=== PATIENT | male | born 1945 | race Caucasian/White ===

== ENCOUNTER 2024-09-20 23:39 | Inpatient (IN) | payer OTHER ==
[~2024-09-20] VITALS: Ht 177.8 cm; Wt 113.0 kg
--- NOTE | 2024-09-20 23:53 | ED.PDOC ---
History of Present Illness HPI Comments 79 y/o obese M, with a history of AICD, is BIBA from home for c/o AICD discharge, today. Patient endorses on having lightheaded spells, that have been increasing in frequency, lately. He reports most recent onset after standing up and walking mid-way to use his bathroom resulting in his AICD to discharge. [facility] on history of his AICD discharging before in the past. He any additional discharge shocks since then along with having any chest pain, shortness of breath, lightheadedness, or further associated symptoms, currently. Time Seen by MD: 23:35 Reviewed Notes: Nurses Notes, Librarian Assistant Notes, Medications, Allergies Allergies: Uncoded Allergies: IBU (Allergy, Unknown, 09/20/24) Information Source: Patient, Emergency Med Personnel Mode of Arrival: EMS Severity: Moderate Timing: Hours Duration: Minutes Prehospital treatment: 12 Lead EKG, Catering Driver Past Medical History PAST MEDICAL HISTORY: AFIB Surgical History (Other): AICD Family History Family History: Unknown Social History Smoker: Non-Smoker Alcohol: Denies ETOH Use Drugs: Denies Drug Use Lives In: Home All Other Systems: Reviewed and Negative (Comprehensive systems review obtained and negative except for what is stated in the HPI.) Physical Exam General Appearance: No Apparent Distress, Obese, Other (tired appearing ) HEENT: Normal ENT Inspection, Pharynx Normal, TMs Normal Neck: Full Range of Motion, Non-Tender, Normal, Normal Inspection Respiratory: Chest Non-Tender, Lungs Clear, No Accessory Muscle Use, No Respiratory Distress, Normal Breath Sounds Cardiovascular: No Edema, No JVD, No Murmur, No Gallop, Normal Peripheral Pulses, Regular Rate/Rhythm Breast Exam: Deferred Gastrointestinal: No Organomegaly, Non Tender, No Pulsatile Mass, Normal Bowel Sounds, Soft Genitalia: Deferred Pelvic: Deferred Rectal: Deferred Extremities: No calf tenderness, Normal capillary refill, Normal inspection, Normal range of motion, Non-tender, No pedal edema Musculoskeletal : Apperance: Normal Neurologic: Alert, technical support internship II-XII nml as Tested, No Motor Deficits, Normal Affect, Normal Mood, No Sensory Deficits Cerebellar Function: Normal Reflexes: Normal Skin: Dry, Normal Color, Warm Lymphatic: No Adenopathy Was a procedure done? Was a procedure done?: No EKG EKG : Pulse Rate (adult): 76 Venus: Normal Cardiac Rhythm: NSR Block: RBBB Hypertrophy: None ST: Normal Differential Dx Considerations may include: AICD discharge, AICD malfunction, arrhythmia, electrolyte imbalance, dehydration, among others X-Ray, Labs, Meds, VS Vital Signs Date Time Temp Pulse Resp B/P (MAP) Pulse Ox O2 Delivery O2 Flow Rate FiO2 09/21/24 00:32 70 09/20/24 23:53 76 09/20/24 23:42 98.8 78 20 145/78 (100) 95 98.8 09/20/24 23:39 76 Lab Test 09/21/24 00:54 09/20/24 23:56 Range/Units Troponin I High Sensitivity Pending 20 </=54 ng/L White Blood Count 7.9 4.4-10.8 10^3/uL Red Blood Count 4.11 L 4.5-5.90 10^6/uL Hemoglobin 10.6 L 13.5-17.5 g/dL Hematocrit 32.5 L 41.0-53.0 % Mean Corpuscular Volume 79.0 L 80.0-100.0 fL Mean Corpuscular Hemoglobin 25.8 L 28.0-32.0 pg Mean Corpuscular Hemoglobin Concent 32.7 32.0-36.0 g/dL Red Cell Distribution Width 16.1 H 11.8-14.3 % Platelet Count 391 140-450 10^3/uL Mean Platelet Volume 7.3 6.9-10.8 fL Neutrophils (%) (Auto) 75.7 37.0-80.0 % Lymphocytes (%) (Auto) 14.2 10.0-50.0 % Monocytes (%) (Auto) 9.6 0.0-12.0 % Eosinophils (%) (Auto) 0.2 0.0-7.0 % Basophils (%) (Auto) 0.3 0.0-2.0 % Neutrophils # (Auto) 6.0 1.6-8.6 10 ^3/uL Lymphocytes # (Auto) 1.1 0.4-5.4 10 ^3/uL Monocytes # (Auto) 0.8 0-1.3 10 ^3/uL Eosinophils # (Auto) 0 0-0.8 10 ^3/uL Basophils # (Auto) 0 0-0.2 10 ^3/uL Nucleated Red Blood Cells 0.0 % Sodium Level 135 L 136-145 mmol/L Potassium Level 3.2 L 3.5-5.1 mmol/L Chloride Level 100 98-107 mmol/L Carbon Dioxide Level 26 20-31 mmol/L Anion Gap 9 5-15 Blood Urea Nitrogen 15 9-23 mg/dL Creatinine 0.90 0.700-1.30 mg/dL Glomerular Filtration Rate Calc 88 >90 mL/min BUN/Creatinine Ratio 16.7 10.0-20.0 Serum Glucose 128 H 74-106 mg/dL Calcium Level 9.3 8.7-10.4 mg/dL B-Type Natriuretic Peptide 140.16 0-100 pg/mL Time of 1ST Reevaluation: 00:05 Reevaluation 1ST: Improved Patient Education/Counseling: Diagnosis, Treatment Family Education/Counseling: No Family Present Additional Information Previous visits: N/A The following tests were ordered, and results were reviewed by me: EKG, UA, CXR, BNP, CBC BMP, troponin Additional Information was gathered from interviewing the following independent historians: EMS I reviewed and agreed with the following test results read by other providers: CXR I discussed treatment and results with medical personnel and: Patient Departure 1 Departure Time of Disposition: 01:17 ([place] [facility]Patient presented with chest pain shortness of breath and near-syncope as well as an EAC discharge. Patient is still symptomatic. We will admit patient here for cardiology consulted and further workup.) Impression: Primary Impression: Acute chest pain Additional Impressions: Near syncope AICD discharge Generalized weakness Disposition: ADMITTED INPATIENT Admit to: Med Surg Condition: Serious Critical Care Note Critical Care Time?: Yes Critical care comment: Acute chest pain Authorized and Performed by: Kody Harvey MD Total critical care time: Approximately 41 minutes Due to a high probability of clinically significant, life threatening deterioration, the patient required my highest level of preparedness to intervene emergently and I personally spent this critical care time directly and personally managing the patient. This critical care time included obtaining a history; examining the patient; pulse oximetry; ordering and review of studies; arranging urgent treatment with development of a management plan; evaluation of patient's response to treatment; frequent reassessment; and, discussions with other providers. This critical care time was performed to assess and manage the high probability of imminent, life-threatening deterioration that could result in multi-organ failure. It was exclusive of separately billable procedures and treating other patients and teaching time. Please see my other sections and the rest of the note for further information on patient assessment and treatment. Stability Stability form required: No Heart Score Heart Score: Heart Score Response (Comments) Value History Highly Suspicious 2 EKG Normal 0 Age >65 2 Risk Factors >3 or Hx ASHD 2 Troponin 1-2 x's Normal limit 1 Total 7 I personally scribed for KODY HARVEY MD ([email or web address]) on 09/20/24 at 23:53. Electronically submitted by Troy Norris ([email or web address]). KODY HARVEY MD Sep 20, 2024 23:53
[2024-09-21 00:19] LABS: Basophils # (auto) 0 10 ^3/uL (0-0.2); Basophils % (auto) 0.3 % (0.0-2.0); Eosinophils # (auto) 0 10 ^3/uL (0-0.8); Hemoglobin 10.6 g/dL (13.5-17.5); Monocytes # (auto) 0.8 10 ^3/uL (0-1.3)
[2024-09-21 00:20] LABS: Chloride 100 mmol/L (98-107); Eosinophils % (auto) 0.2 % (0.0-7.0); Hematocrit 32.5 % (41.0-53.0); Lymphocytes # (auto) 1.1 10 ^3/uL (0.4-5.4); Lymphocytes % (auto) 14.2 % (10.0-50.0); Mean Corpuscular Hemoglobin 25.8 pg (28.0-32.0); Mean Corpuscular Hgb Conc. 32.7 g/dL (32.0-36.0); Monocytes % (auto) 9.6 % (0.0-12.0); Neutrophils % (auto) 75.7 % (37.0-80.0); Platelet Count (auto) 391 10^3/uL (140-450); Red Blood Cells 4.11 10^6/uL (4.5-5.90); Red Cell Distribution Width 16.1 % (11.8-14.3); White Blood Cell 7.9 10^3/uL (4.4-10.8)
[2024-09-21 00:21] LABS: Anion Gap 9 (5-15); Carbon Dioxide 26 mmol/L (20-31)
[2024-09-21 00:22] LABS: Calcium 9.3 mg/dL (8.7-10.4)
[2024-09-21 00:26] LABS: BUN/Creatinine Ratio 16.7 (10.0-20.0); Blood Urea Nitrogen 15 mg/dL (9-23)
[2024-09-21 00:32] LABS: Glucose 128 mg/dL (74-106); Potassium 3.2 mmol/L (3.5-5.1); Sodium 135 mmol/L (136-145)
--- NOTE | 2024-09-21 00:33 | DVH ---
CHEST RADIOGRAPH Indication: palpitations Technique: Single frontal view of the chest was obtained COMPARISON: None FINDINGS: Lines and Tubes: Right IJ port-a-cath noted with its tip projecting over approximately SVC. Dual-lead AICD/pacemaker noted overlying left chest wall. Lungs: Clear Pleura: No effusion. No pneumothorax. Cardiomediastinal contours: Unremarkable IMPRESSION: No acute disease.
[2024-09-21 01:03] VITALS: PULSE 70; RESP 13; O2SAT 97
--- NOTE | 2024-09-21 01:51 | DVHHPRES ---
History of Present Illness Resident Creating Document: KD MOCK History of Present Illness Ernesto Jiménez is a 79-year-old male patient who presents to the ED with chief complaint of ICD discharge. Episode started after he had gone to the bathroom to urinate, felt lightheaded when he stood up and immediately had discharge from the ICD device. Patient reports feeling lightheadedness in the past days after his chemotherapy session (last one was done on Friday). 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 to 100 mg b.i.d. and his metoprolol was reduced from 100 mg b.i.d. to 25 mg p.o. b.i.d..). Patient does complain of previous episode of discharge in 2011 where he was diagnosed with coronary artery disease and completed PCI with placement of 1 stent approximately 10 years ago. Patient denies head trauma, palpitation, syncope, chest pain, dyspnea, nausea, vomiting, diarrhea, bleeding, sick contacts, recent travel or motor and sensitive deficits. Past medical history: Hypertension, dyslipidemia, diabetes, ARVC status post ICD placed in 2011, coronary artery disease status post PCI with 1 VITA., paroxysmal atrial fibrillation (chads Vasc 5/has bled 3) currently on Pradaxa and amiodarone, colon cancer diagnosed in 2023 status post resection in April/2024 with recent diagnosis of recurrence (he has peritoneal metastasis) currently he has completed two sessions of chemotherapy (still optimizing chemot herapy). Surgical history: 2011 ICD placement, 2011 PCI with 1 VITA, colon resection on 04/2024 Family history: Father had AAA Social history: Lives in [place] with (she has been next of kin). Denies current tobacco, alcohol and other drug abuse. He is consuming CBD gummies for abdominal pain due to colon cancer metastases Allergies: Statins (gives him myalgias) Home medication: Hydrochlorothiazide, amiodarone 100 mg p.o. b.i.d., metoprolol 25 mg p.o. b.i.d., losartan, glipizide, Pradaxa, Evolucumab. Patient seen and examined at bedside. Currently has no new complaints. Presented hypokalemia on preliminary workup. EKG shows prolonged QTC (above 600 milliseconds). We will not initiate beta-blockers amiodarone due to prolonged QT. We will correct potassium and we will interrogate cardiac device. Past Medical History Per HPI Past Surgical History Per HPI Family History Per HPI Past Social History Per HPI Review of Systems Review of Systems Per HPI Allergies: Uncoded Allergies: IBU (Allergy, Unknown, 09/20/24) Exam Vital Signs Vital Signs Date Time Temp Pulse Resp B/P (MAP) Pulse Ox O2 Delivery O2 Flow Rate FiO2 09/21/24 00:32 70 09/20/24 23:42 98.8 20 145/78 (100) 95 98.8 Exam Patient lying in bed, in no acute distress General: Lucid, afebrile, mucosae are moist Cardiovascular: Normal S1 and S2. No murmurs, gallops or rubs Respiratory: Normal ventilation mechanics. Clear lung sounds on auscultation Abdomen: Soft, nontender, no organomegaly, normal bowel sounds MSK/skin: Mobilizes 4 limbs. Skin is dry and warm Neurological: Oriented in 3 spheres. No motor no sensitive deficits. Pupils are isocoric and reactive Labs/Xrays Labs Test 09/21/24 00:54 09/20/24 23:56 Range/Units Troponin I High Sensitivity 23 </=54 ng/L White Blood Count 7.9 4.4-10.8 10^3/uL Red Blood Count 4.11 L 4.5-5.90 10^6/uL Hemoglobin 10.6 L 13.5-17.5 g/dL Hematocrit 32.5 L 41.0-53.0 % Mean Corpuscular Volume 79.0 L 80.0-100.0 fL Mean Corpuscular Hemoglobin 25.8 L 28.0-32.0 pg Mean Corpuscular Hemoglobin Concent 32.7 32.0-36.0 g/dL Red Cell Distribution Width 16.1 H 11.8-14.3 % Platelet Count 391 140-450 10^3/uL Mean Platelet Volume 7.3 6.9-10.8 fL Neutrophils (%) (Auto) 75.7 37.0-80.0 % Lymphocytes (%) (Auto) 14.2 10.0-50.0 % Monocytes (%) (Auto) 9.6 0.0-12.0 % Eosinophils (%) (Auto) 0.2 0.0-7.0 % Basophils (%) (Auto) 0.3 0.0-2.0 % Neutrophils # (Auto) 6.0 1.6-8.6 10 ^3/uL Lymphocytes # (Auto) 1.1 0.4-5.4 10 ^3/uL Monocytes # (Auto) 0.8 0-1.3 10 ^3/uL Eosinophils # (Auto) 0 0-0.8 10 ^3/uL Basophils # (Auto) 0 0-0.2 10 ^3/uL Nucleated Red Blood Cells 0.0 % Sodium Level 135 L 136-145 mmol/L Potassium Level 3.2 L 3.5-5.1 mmol/L Chloride Level 100 98-107 mmol/L Carbon Dioxide Level 26 20-31 mmol/L Anion Gap 9 5-15 Blood Urea Nitrogen 15 9-23 mg/dL Creatinine 0.90 0.700-1.30 mg/dL Glomerular Filtration Rate Calc 88 >90 mL/min BUN/Creatinine Ratio 16.7 10.0-20.0 Serum Glucose 128 H 74-106 mg/dL Calcium Level 9.3 8.7-10.4 mg/dL B-Type Natriuretic Peptide 140.16 0-100 pg/mL Assessment/Plan Assessment/Plan Assessment: Probable ventricular arrhythmia (V-tach versus torsades) Prolonged QT Hypokalemia ARVC status post ICD placement Coronary artery disease status post 1 VITA Paroxysmal atrial fibrillation (chads Vasc 5/Has bled 3) Colon cancer with recurrence and peritoneal metastases status post resection and chemotherapy Hypertension Dyslipidemia Diabetes Plan: Replenish potassium. Ordered magnesium to evaluate requirement for replenishment. Replenish until potassium above four and magnesium above two. Order cardiac device interrogation Avoid medication that prolonged QT (did not initiate metoprolol nor amiodarone at this point). Switch Pradaxa to therapeutic enoxaparin. Continue rest of home medication. Ordered cardiology evaluation to rule out ischemia We do not have Evolucomab the hospital, we will place it as patient's home medication (patient has myalgias with atorvastatin) Patient on aspirin (he was not on aspirin at home) Goals of care discussed with patient for over 24 minutes: DNR. Have discussed with patient that currently he is ICD is working and defibrillator it is whenever he has a arrhythmia, he may plan on deactivating ICD. He does agree on completing coronary angiography. Discussed plan with Dr. Padron, patient, family and nurses: We will replenish electrolytes, avoid medication that prolongs QT, consulted Cardiology to rule out ischemia. Ordered cardiac device interrogation. Patient has poor prognosis. Patient is unstable for transferred to [place]. Plan discussed with: Patient, Spouse, Other (Nurses) My Orders Orders - KD MOCK RESIDENT Procedure Category Date Status Time Admit ADMIT 09/21/24 Transmitted 01:47 Code Status CODE 09/21/24 Transmitted 01:47 Vital Signs [facility] 09/21/24 In Process 01:47 Review Orders With [facility] 09/21/24 In Process Adm. 01:47 Consistent DIET 09/21/24 Transmitted Carb(Ccho)Diabetes Breakfast Docusate Sodium PHA 09/21/24 Logged Capsule (Colace 02:00 Acetaminophen Tablet PHA 09/21/24 Logged (Tylenol Tablet) 02:00 Notify Of Changes [facility] 09/21/24 In Process From Base 01:47 Advance Directive [facility] 09/21/24 In Process 01:47 Echo 2d Mode Cardiac US 09/21/24 Logged DOP 01:47 Patient Condition ORDERS 09/21/24 Transmitted 01:47 Allergies [facility] 09/21/24 In Process 01:[address] [facility] 09/21/24 Logged (Zofran) 02:00 Morphine Sulfate PHA 09/21/24 Logged Injection 02:00 Enoxaparin Sodium PHA 09/21/24 Logged (Lovenox) 10:00 Nitroglycerin PHA 09/21/24 Logged Sublingual (Ntrostat 02:00 Morphine Sulfate PHA 09/21/24 Transmitted Injection 02:00 Oxygen By Nasal RT 09/21/24 Transmitted Cannula 01:47 Stat Ekg For Chest [facility] 09/21/24 In Process Pain 01:47 Notify Of Changes [facility] 09/21/24 In Process From Base 01:47 Edge Inker For [facility] 09/21/24 In Process 24 Hours 01:47 Emergency Dysrhythmia [facility] 09/21/24 In Process Protocol 01:47 Rhythm Strips Once [facility] 09/21/24 In Process Every Shift 01:47 Vitamin D, 25-Hydroxy LAB 09/21/24 Logged 01:47 Vitamin B12 LAB 09/21/24 Logged 01:47 Urinalysis LAB 09/21/24 Logged 01:47 Thyroid Stimulating LAB 09/21/24 Logged Hormone 01:47 Phosphorus LAB 09/21/24 Logged 01:47 Magnesium LAB 09/21/24 Transmitted 01:47 Hemoglobin A1c LAB 09/21/24 Transmitted 01:47 Drug Screen LAB 09/21/24 Transmitted 01:47 Lactic Acid W/ Reflex LAB 09/21/24 Transmitted Order 01:47 PTPTT LAB 09/21/24 Logged 01:47 Complete Blood Count LAB 09/21/24 Transmitted 04:00 Basic Metabolic Panel LAB 09/21/24 Transmitted 04:00 Potassium Chl Beto PHA 09/21/24 Verified KCL 02:00 Date of Service: Sep 21, 2024 Billing Provider: [facility] [place] RES[facility] Sep 21, 2024 01:51
[2024-09-21] MEDS ORDERED: ACETAMINOPHEN 325 MG TAB PO PRN (02:00)
[2024-09-21] MEDS ORDERED: NITROGLYCERIN 0.4 MG SL TAB SL PRN (02:00)
[2024-09-21] MEDS ORDERED: ONDANSETRON HCL 4 MG/2 ML VIAL IV PRN (02:00)
[2024-09-21] MEDS ORDERED: MORPHINE SULFATE INJ 2 MG/ml SYRG IV PRN (02:00)
[2024-09-21] MEDS ORDERED: DOCUSATE SOD 100 MG CAP PO PRN (02:00)
[2024-09-21 02:23] LABS: INR 1.12 (0.9-1.15); Partial Thromboplastin Time 34.1 SEC (24.5-34.5); Prothrombin Time 11.7 sec (9.3-11.8)
[2024-09-21] MEDS: POTASSIUM CHL 20MEQ/50ML 50 ML IV SCH (03:15)
[2024-09-21] MEDS ORDERED: DEXTROSE (50%) 50ML SYRG IV PRN (04:15)
[2024-09-21] MEDS ORDERED: PATIENTS OWN MEDICATION PO SCH (05:00)
[2024-09-21 05:28] LABS: Basophils # (auto) 0 10 ^3/uL (0-0.2); Basophils % (auto) 0.2 % (0.0-2.0); Eosinophils # (auto) 0 10 ^3/uL (0-0.8); Eosinophils % (auto) 0.4 % (0.0-7.0); Hematocrit 30.7 % (41.0-53.0); Hemoglobin 10.2 g/dL (13.5-17.5); Mean Corpuscular Hgb Conc. 33.2 g/dL (32.0-36.0); Monocytes # (auto) 0.8 10 ^3/uL (0-1.3); Neutrophils # (auto) 5.2 10 ^3/uL (1.6-8.6); White Blood Cell 7.3 10^3/uL (4.4-10.8)
[2024-09-21 05:31] LABS: Lymphocytes # (auto) 1.4 10 ^3/uL (0.4-5.4); Lymphocytes % (auto) 18.5 % (10.0-50.0); Mean Corpuscular Hemoglobin 26.1 pg (28.0-32.0); Mean Corpuscular Volume 78.5 fL (80.0-100.0); Monocytes % (auto) 10.5 % (0.0-12.0); Neutrophils % (auto) 70.4 % (37.0-80.0); Platelet Count (auto) 368 10^3/uL (140-450); Red Blood Cells 3.91 10^6/uL (4.5-5.90); Red Cell Distribution Width 16.1 % (11.8-14.3)
[2024-09-21] MEDS: PANTOPRAZOLE 40 MG/10 ML VIAL INJ IV ONE (05:37)
[2024-09-21 05:42] LABS: Anion Gap 9 (5-15); Carbon Dioxide 26 mmol/L (20-31); Chloride 100 mmol/L (98-107)
[2024-09-21 05:43] LABS: Calcium 9.4 mg/dL (8.7-10.4)
[2024-09-21 05:44] LABS: Sodium 135 mmol/L (136-145)
[2024-09-21 05:49] LABS: BUN/Creatinine Ratio 16.9 (10.0-20.0); Blood Urea Nitrogen 14 mg/dL (9-23); Magnesium 2.1 mg/dL (1.6-2.6)
[2024-09-21 05:54] LABS: Glucose 110 mg/dL (74-106)
[2024-09-21] MEDS: ACCU-CHEK COMFORT CURVE STRIP VI SCH (07:00)
[2024-09-21] MEDS: InsuLIN REG 1unit/0.01ml Soln (100units/ml) SC SCH (07:00)
[2024-09-21 07:54] LABS: Urine Bacteria None Seen /hpf (None Seen); Urine Blood Negative /uL (Negative); Urine Clarity Clear (Clear); Urine Color Yellow (Yellow); Urine Mucus FEW (None Seen); Urine Protein, UAD TRACE (Negative); Urine Specific Gravity 1.027 (1.001-1.035); Urine Squamous Epithelial Cell FEW /hpf (<5); Urine Urobilinogen 2 mg/dL (Negative); Urine WBC 1 /HPF (0-3)
[2024-09-21 08:07] LABS: Amphetamine Screen, Urine Neg (NEGATIVE); Barbiturate Scree,Urine Neg (NEGATIVE); Benzodiazephine Screen, Urine Neg (NEGATIVE); Cannabinoid Screen, Urine Pos (NEGATIVE); Cocaine Screen, Urine Neg (NEGATIVE); Opiate Scree,Urine Pos (NEGATIVE); Phencyclidine Screen, Urine Neg (NEGATIVE)
[2024-09-21 08:30] VITALS: PULSE 70; RESP 13; O2SAT 97
[2024-09-21] MEDS: PANTOPRAZOLE 40 MG/10 ML VIAL INJ IV SCH (09:36)
[2024-09-21] MEDS: ASPirin 81 mg TAB PO SCH (09:37)
[2024-09-21] MEDS: ENOXAPARIN SOD 100 MG/1 ML SYRINGE SC SCH (09:37)
[2024-09-21] MEDS: LOSARTAN POTASSIUM 25 MG TAB PO SCH (09:37)
[2024-09-21] MEDS ORDERED: ENOXAPARIN SOD 40 MG/0.4 ML SYRINGE SC SCH (10:00)
[2024-09-21] MEDS: MORPHINE SULFATE INJ 2 MG/ml SYRG IV PRN (11:52)
--- NOTE | 2024-09-21 11:53 | DVHINCON2 ---
BEATRICE ROSS [facility] 09/21/24 1153: Date Seen: Sep 21, 2024 Referring Physician MD Jenny Reason for Consultation Probable cardiogenic syncope, evaluate [facility] History of Present Illness This is a pleasant 79-year-old man who presented to the emergency room via EMS with a chief complaint of ICD discharge. Per patient, he was sitting on the toilet urinating when he stood up and felt lightheadedness followed by ICD device discharge x1. At time of assessment, the patient denied any cardiac symptoms including chest discomfort, SOB, palpitations, dizziness, visual disturbance, or diaphoresis. States he had a similar episode of ICD device discharge back in 2011 undergoing an ischemic stress test with subsequent successful coronary angiogram with cardiac catheterization including 1DES to an unknown vessel. Reports intermittent dizziness for the past few weeks endorsing his symptoms to be possibly secondary to recent chemotherapy treatment for colorectal cancer stage III with latest administration on 08/20/2024 and upcoming session on 09/24/2024. A 12 lead electrocardiogram revealed a sinus rhythm with an associated first-degree atrioventricular block, ARVC seen on anteroseptal leads, and a prolonged QTc as long as 684 ms. Serial troponin levels are negative. Follows up with primary traffic attendant at [facility] with recent changes on amiodarone from 200 mg to 100 mg bid. 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 Past Medical History Past medical history reviewed. No other significant than mentioned above. Past Surgical History Dual-chamber ICD, 2011 PTCA including 1DES, 2011 Inoperable colorectal CA, 04/2024 Family History Family history reviewed. Significant for father with AAA. Social History Denies the use of illicit drugs, alcohol, or tobacco use. Admits to [facility] gummies for cancer symptoms. Allergies: Coded Allergies: Statins (Verified Allergy, Unknown, swelling, 09/22/24) Uncoded Allergies: IBU (Allergy, Unknown, 09/20/24) Home Meds Reported Medications Hydrochlorothiazide (Hydrochlorothiazide) 25 Mg Tab, 1 TAB PO DAILY, #30 TAB 5 Refills 09/22/24 Losartan Potassium (Losartan Potassium) 25 Mg Tab, 1 TAB PO DAILY, #90 TAB 1 Refill 09/22/24 Glipizide (Glipizide) 5 Mg Tab, 1 TAB PO BID, #60 TAB 3 Refills 09/22/24 Dabigatran Etexilate Mesylate (Pradaxa) 150 Mg Cap, 1 CAP PO BID, #180 CAP 1 Refill 09/22/24 Amiodarone Hcl (Amiodarone Hcl) 200 Mg Tab, 1 TAB PO DAILY, #90 TAB 1 Refill 09/22/24 Metoprolol Succinate (Metoprolol Succinate Er) 25 Mg Tab, 1 TAB PO DAILY, #30 TAB 5 Refills 09/22/24 Docusate Sodium (Colace) 100 Mg Cap, 1 CAP PO BID, #30 CAP 09/22/24 Aspirin (Aspir-81) 81 Mg Tab, 1 TAB PO DAILY, #30 TAB 5 Refills 09/22/24 Home Meds Home medications reviewed. Current Medications Current Medications Medications (Trade) Dose Ordered Sig/Dina Route PRN Reason Start Time Stop Time Status Last Admin Docusate Sodium (Colace Capsule) 100 mg BIDPRN PRN PO FOR CONSTIPATION 09/21/24 02:00 Acetaminophen (Tylenol Tablet) 650 mg Q6HP PRN PO PAIN SCALE 1-3 OR TEMP>100.4 09/21/24 02:00 Ondansetron HCl (Zofran) 4 mg Q4HP PRN IV NAUSEA / VOMITING 09/21/24 02:00 09/21/24 04:54 DC Morphine Sulfate 2 mg Q4HPRN PRN IV SEVERE PAIN (7-10 PAIN SCALE) 09/21/24 02:00 Enoxaparin Sodium (Lovenox) 40 mg DAILY SC 09/21/24 10:00 09/21/24 04:54 DC Nitroglycerin (Ntrostat Sublingual) 0.4 mg Q5MINP PRN SL FOR CHEST PAIN 09/21/24 02:00 Morphine Sulfate 2 mg Q30M PRN IV FOR CHEST PAIN 09/21/24 02:00 Potassium Chloride 50 ml @ 25 mls/hr Q2H IV 09/21/24 02:00 09/21/24 09:59 DC 09/21/24 09:36 Enoxaparin Sodium (Lovenox) 100 mg Q12HR SC 09/21/24 10:00 09/21/24 09:37 Pantoprazole Sodium (Protonix) 40 mg DAILY IV 09/21/24 10:00 09/21/24 09:36 Losartan Potassium (Cozaar Tablet) 25 mg DAILY PO 09/21/24 10:00 09/21/24 09:37 Diagnostic Test (Pha) (Accu-Chek Comfort Curve T) 1 strip ACHS 09/21/24 07:00 09/21/24 07:00 Insulin Human Regular (InsuLIN R) ACHS SC 09/21/24 07:00 Dextrose 50 ml UD PRN IV Blood Sugar LESS THAN 60 09/21/24 04:15 Aspirin 81 mg DAILY PO 09/21/24 10:00 09/21/24 09:37 Patient Own Medication 1 QWEEKLY PO 09/21/24 05:00 Hold Review of Systems Constitutional: No symptom reported Ears, Nose, & Throat: No symptom reported Eyes: No symptom reported Neurological: No symptoms reported Pulmonary/Respiratory: No symptom reported Cardiovascular: No symptom reported Gastrointestinal: No symptom reported Genitourinary: No symptom reported Musculoskeletal: No symptom reported Skin: No symptom reported Psychiatric: No symptom reported Endocrine: No symptom reported Hemotologic/Lymphatic: No symptom reported Vital Signs Vital Signs Date Time Temp Pulse Resp B/P (MAP) Pulse Ox O2 Delivery O2 Flow Rate FiO2 09/21/24 09:37 150/61 09/21/24 08:26 70 17 93 09/21/24 05:19 98.8 98.8 09/21/24 01:03 Room Air* 0 21 Physical Exam General Appearance: Cooperative. Well developed. Obese. In no acute distress Head Exam: Normal inspection Neck Exam: Normal inspection. Non-tender. Normal alignment Pulmonary/Respiratory: Chest non-tender. Clear bilateral breath sounds Cardiovascular/Chest: Regular rate and rhythm. S1, S2. SR with ARVC, 1st degree AV block, and prolonged QTc. No murmurs. No JVD. Peripheral Pulses: 2+ Radial (R). 2+ Radial (L). 2+ Pedal (R). 2+ Pedal (L) Abdominal Exam: Normal bowel sounds. Soft. Nontender. No hepatospenomegaly. No masses Ankle Exam: Negative ankle edema Lower extremities: Negative lower extremity edema Neuro/Mental Status: A&O x4. Coherent Thoughts/Psych: Normal thought pattern. Appropriate mood and affect. Good judgement and insight Appearance: In no acute distress Skin Exam: Normal inspection. Normal color. Warm. Dry Labs/Diagnostic Data Labs Test 09/21/24 08:45 09/21/24 05:10 09/21/24 02:40 09/21/24 01:47 Range/Units Potassium Level 3.4 L 3.5-5.1 mmol/L White Blood Count 7.3 4.4-10.8 10^3/uL Red Blood Count 3.91 L 4.5-5.90 10^6/uL Hemoglobin 10.2 L 13.5-17.5 g/dL Hematocrit 30.7 L 41.0-53.0 % Mean Corpuscular Volume 78.5 L 80.0-100.0 fL Mean Corpuscular Hemoglobin 26.1 L 28.0-32.0 pg Mean Corpuscular Hemoglobin Concent 33.2 32.0-36.0 g/dL Red Cell Distribution Width 16.1 H 11.8-14.3 % Platelet Count 368 140-450 10^3/uL Mean Platelet Volume 7.2 6.9-10.8 fL Neutrophils (%) (Auto) 70.4 37.0-80.0 % Lymphocytes (%) (Auto) 18.5 10.0-50.0 % Monocytes (%) (Auto) 10.5 0.0-12.0 % Eosinophils (%) (Auto) 0.4 0.0-7.0 % Basophils (%) (Auto) 0.2 0.0-2.0 % Neutrophils # (Auto) 5.2 1.6-8.6 10 ^3/uL Lymphocytes # (Auto) 1.4 0.4-5.4 10 ^3/uL Monocytes # (Auto) 0.8 0-1.3 10 ^3/uL Eosinophils # (Auto) 0 0-0.8 10 ^3/uL Basophils # (Auto) 0 0-0.2 10 ^3/uL Nucleated Red Blood Cells 0.0 % Sodium Level 135 L 136-145 mmol/L Chloride Level 100 98-107 mmol/L Carbon Dioxide Level 26 20-31 mmol/L Anion Gap 9 5-15 Blood Urea Nitrogen 14 9-23 mg/dL Creatinine 0.83 0.700-1.30 mg/dL Glomerular Filtration Rate Calc 90 >90 mL/min BUN/Creatinine Ratio 16.9 10.0-20.0 Serum Glucose 110 H 74-106 mg/dL Hemoglobin A1c 5.4 <5.7 % A1C Lactic Acid Level 1.0 0.4-2.0 mmol/L Calcium Level 9.4 8.7-10.4 mg/dL Phosphorus Level 3.0 2.4-5.1 mg/dL Magnesium Level 2.1 1.6-2.6 mg/dL Vitamin B12 Level 124 L 211-911 pg/mL Vitamin D 25-Hydroxy 64.1 30.0-100 ng/mL Thyroid Stimulating Hormone (TSH) 1.42 0.55-4.78 uIU/mL Troponin I High Sensitivity 24 </=54 ng/L Urine Color Yellow Yellow Urine Clarity Clear Clear Urine pH 6.0 5.0-9.0 Urine Specific Onward 1.027 1.001-1.035 Urine Protein Trace H Negative Urine Ketones 1+ H Negative Urine Blood Negative Negative /uL Urine Nitrite Negative Negative Urine Bilirubin Negative Negative Urine Urobilinogen 2 H Negative mg/dL Urine Leukocyte Esterase Negative Negative /uL Urine RBC <1 0 - 3 /hpf Urine Microscopic WBC 1 0-3 /HPF Urine Squamous Epithelial Cells Few <5 /hpf Urine Bacteria None seen None Seen /hpf Urine Mucus Few None Seen Urine Glucose Normal Normal mg/dL Urine Opiates Screen Pos NEGATIVE Urine Fentanyl Screen Neg NEGATIVE Urine Barbiturates Screen Neg NEGATIVE Urine Phencyclidine Screen Neg NEGATIVE Urine Amphetamines Screen Neg NEGATIVE Urine Benzodiazepines Screen Neg NEGATIVE Urine Cocaine Screen Neg NEGATIVE Urine Cannabinoids Screen Pos NEGATIVE Test 09/20/24 23:56 Range/Units Prothrombin Time 11.7 9.3-11.8 sec Prothrombin Time INR 1.12 0.9-1.15 Activated Partial Thromboplast Time 34.1 24.5-34.5 SEC B-Type Natriuretic Peptide 140.16 0-100 pg/mL Assessment Dual-chamber AICD discharge x 1, Biotronik (01/2018) Prolonged QTc >650 ms, ?Torsades de pointes Coronary artery disease status post PCI with 1DES (off antiplatelets) 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 Santana) We will continue further cardiac evaluation with a transthoracic echocardiogram and an ICD interrogation to further discerned cardiac arrhythmia at time of ICD discharge. Suspected for torsades de pointes versus sustained ventricular tachycardia. Given advanced inoperable colorectal cancer stage III with peritoneal metastases, may not be prudent to perform any invasive cardiac procedures at this time as the risks may outweigh the benefits. This was discussed with the patient and at bedside who agreed with plan. Per patient, he would like to be a DNR status and is considering ICD deactivation. As the patient is cardiac stable, it would be feasible to transfer to [facility] for primary traffic attendant and oncologist to come in agreement for POC. Given the patient's choices and very poor prognosis, he may be a candidate for hospice care. In the meantime, avoid Class Ia and III antiarrhythmics, continue therapeutic Lovenox, and single-antiplatelet therapy ([id number] Score 5 points, HAS-BLED Score 3 points). Initiate beta-rosangela and up-titrate as tolerated. Replete electrolytes as necessary, K>4 and Mg >2. Further orders per clinical course. Thank you for allowing us to participate in this patient's care. Please call if you have any questions or concerns. Critical care time: 60 min. This medical document was created using an electronic medical record system with voice recognition software and co [employer] dictation system. Although this document has been carefully reviewed, there might still be some phonetic and typographical errors. Occasional wrong-word or ``sound-alike substitutions may have occurred due to the inherent limitations of voice recognition software. These areas are purely typographical due to imperfections of the software programs and do not reflect a ny compromise in the patient's medical care. Please read the chart carefully and recognize, using context, where these substitutions have occurred. Plan discussed with: Patient, Spouse, Other NYHA Physical activity limitations: NA Date of Service: Sep 21, 2024 Billing Provider: BEATRICE ROSS Cardiology Common Codes: [id number] CARE 30-74 MIN KAMRAN SANTANA MD 09/22/24 0841: Date Seen: Sep 21, 2024 Allergies: Coded Allergies: Statins (Verified Allergy, Unknown, swelling, 09/22/24) Uncoded Allergies: IBU (Allergy, Unknown, 09/20/24) Home Meds Reported Medications Hydrochlorothiazide (Hydrochlorothiazide) 25 Mg Tab, 1 TAB PO DAILY, #30 TAB 5 Refills 09/22/24 Losartan Potassium (Losartan Potassium) 25 Mg Tab, 1 TAB PO DAILY, #90 TAB 1 Refill 09/22/24 Glipizide (Glipizide) 5 Mg Tab, 1 TAB PO BID, #60 TAB 3 Refills 09/22/24 Dabigatran Etexilate Mesylate (Pradaxa) 150 Mg Cap, 1 CAP PO BID, #180 CAP 1 Refill 09/22/24 Amiodarone Hcl (Amiodarone Hcl) 200 Mg Tab, 1 TAB PO DAILY, #90 TAB 1 Refill 09/22/24 Metoprolol Succinate (Metoprolol Succinate Er) 25 Mg Tab, 1 TAB PO DAILY, #30 TAB 5 Refills 09/22/24 Docusate Sodium (Colace) 100 Mg Cap, 1 CAP PO BID, #30 CAP 09/22/24 Aspirin (Aspir-81) 81 Mg Tab, 1 TAB PO DAILY, #30 TAB 5 Refills 09/22/24 Plan/Recommendation 79yo m with ARVC s.p ICD. presenting after device shock. It is important to note the patient has WIDE QRS at BASELINE- RBBB. This limits the ability to identify cause of shock- cannot use morphology without comparing it to baseline or current morphology. I have asked the device rep to obtain such tracing. Echo beats were identified and thus supports VT. On the other hand V is not more than A so this could be an A Tach. -recommend repeat EKG when potassium repleted and specifically measure QTc manually -ideally he should be transferred to [place] where his treating physicians are if he is to be discharged home form our facility then his VT treatment thresholds on device will need adjustment as they are currently set to treat from 130bpm which is not usual. I have signed out to Dr. Villaseñor who will continue following this patient along with the team. Plan discussed with: Patient Cardiology Common Codes: [id number] INP/OBS CARE (High) BEATRICE ROSS [employer] STRINGER Sep 21, 2024 11:53 KAMRAN SANTANA MD Sep 22, 2024 08:41
[2024-09-21] MEDS: ONDANSETRON HCL 4 MG/2 ML VIAL ONE ×2 (12:07→17:27)
[2024-09-21] MEDS: POTASSIUM CHL 20 Meq TABLET PO ONE ×2 (12:42→14:45)
--- NOTE | 2024-09-21 13:51 | DVHPN2 ---
Progress Note Date Seen: Sep 21, 2024 Medical Necessity Reason Pt with a Central, PICC or Fol: No Subjective Patient reports: No new complaints Review of Systems: HEENT:Normal, CVS:Normal, RESPIRATORY:Normal, GI:Normal, :Normal, MSK:Normal, NEURO:Normal Objective vital signs Vital Sign Date Time Temp Pulse Resp B/P (MAP) Pulse Ox O2 Delivery O2 Flow Rate FiO2 09/21/24 12:42 70 16 148/71 09/21/24 08:26 93 09/21/24 05:19 98.8 98.8 09/21/24 01:03 Room Air* 0 21 medications Current Medications Medications Dose Ordered Sig/Dina Route Start Time Stop Time Status Last Admin Dose Admin Docusate Sodium 100 mg BIDPRN PRN PO 09/21/24 02:00 Acetaminophen 650 mg Q6HP PRN PO 09/21/24 02:00 Morphine Sulfate 2 mg Q4HPRN PRN IV 09/21/24 02:00 09/21/24 11:52 2 MG Nitroglycerin 0.4 mg Q5MINP PRN SL 09/21/24 02:00 Morphine Sulfate 2 mg Q30M PRN IV 09/21/24 02:00 Enoxaparin Sodium 100 mg Q12HR SC 09/21/24 10:00 09/21/24 09:37 100 MG Pantoprazole Sodium 40 mg DAILY IV 09/21/24 10:00 09/21/24 09:36 40 MG Losartan Potassium 25 mg DAILY PO 09/21/24 10:00 09/21/24 09:37 25 MG Diagnostic Test (Pha) 1 strip ACHS 09/21/24 07:00 09/21/24 11:30 1 STRIP Insulin Human Regular ACHS SC 09/21/24 07:00 Dextrose 50 ml UD PRN IV 09/21/24 04:15 Aspirin 81 mg DAILY PO 09/21/24 10:00 09/21/24 09:37 81 MG Patient Own Medication 1 QWEEKLY PO 09/21/24 05:00 Hold Metoprolol Succinate 25 mg DAILY PO 09/22/24 10:00 UNV Examination: GENERAL:Normal, HEENT:Normal, NECK:Normal, LUNGS:Normal, CVS:Normal, ABDOMEN:Normal, MSK:Normal, SKIN:Normal, NEURO:Normal, :Normal laboratory and microbiology Laboratory Tests 09/21/24 08:45 09/21/24 05:10 Test 09/21/24 05:10 Range/Units Serum Glucose 110 H 74-106 mg/dL Problem List/Assessment/Plan Problem List/Assessment/Plan #1 s/p aicd discharge #2 cad s/p stent #3 hypokalemia: replace #4 h/o colon cancer s/p chemo #5 obesity #6 htn #7 h/o right ventricular dysplasia/ aicd placement #8 hyperlipidemia advance care planning- dnr- time spent 19 mins Plan discussed with: Patient My Orders My Orders Orders - SUPA LEZAMA MD Procedure Category Date Status Time Regular Diet DIET 09/21/24 Transmitted Dinner Complete Blood Count LAB 09/22/24 Verified 06:00 Basic Metabolic Panel LAB 09/22/24 Verified 06:00 Magnesium LAB 09/22/24 Verified 05:00 Date of Service: Sep 21, 2024 Billing Provider: SUPA LEZAMA MD Common Visit Codes: [id number] INP/OBS CARE(HIGH) Secondary Visit Codes: [id number] CARE PLAN 30 MINUTES SUPA LEZAMA MD Sep 21, 2024 13:51
[2024-09-21] MEDS: METOPROLOL SUCCINATE XL 50 MG TAB PO ONE (14:06)
[2024-09-21 14:19] LABS: Potassium 3.4 mmol/L (3.5-5.1)
[2024-09-21 14:25] LABS: Magnesium 1.9 mg/dL (1.6-2.6)
[2024-09-21] MEDS: MAGNESIUM SULFATE 1GM/100ML 100 ML IV ONE (14:45)
[2024-09-21 19:30] VITALS: PULSE 74; RESP 14; O2SAT 95
[2024-09-21 22:06] VITALS: BP 144/60; PULSE 71; RESP 18; TEMP 98.8; O2SAT 94
[2024-09-21 23:34] VITALS: PULSE 71; RESP 18; O2SAT 94
[2024-09-21] MEDS: DexAMETHasone SOD PHOS 4 MG/1ML SDV INJ IV ONE (23:35)
[2024-09-22] VITALS (7 sets, daily range): BP systolic 107–150; BP diastolic 49–70; PULSE 68–70; RESP 17–18; TEMP 97.9–98.5; O2SAT 92–96
[2024-09-22] MEDS ORDERED: DOCU-94 PO (00:44)
[2024-09-22] MEDS ORDERED: LOSA-533 PO (00:44)
[2024-09-22] MEDS ORDERED: HYDR25TA4 PO (00:44)
[2024-09-22] MEDS ORDERED: DABI150C5 PO (00:44)
[2024-09-22] MEDS ORDERED: METO25TA93 PO (00:44)
[2024-09-22] MEDS ORDERED: ASPI1TAB20 PO (00:44)
[2024-09-22] MEDS ORDERED: AMIO200T33 PO (00:44)
[2024-09-22] MEDS ORDERED: GLIP5TAB21 PO (00:44)
[2024-09-22 07:42] LABS: Basophils # (auto) 0 10 ^3/uL (0-0.2); Eosinophils # (auto) 0 10 ^3/uL (0-0.8); Hematocrit 30.5 % (41.0-53.0); Hemoglobin 9.9 g/dL (13.5-17.5); Lymphocytes # (auto) 0.6 10 ^3/uL (0.4-5.4); Mean Corpuscular Hemoglobin 25.7 pg (28.0-32.0); Mean Corpuscular Volume 79.2 fL (80.0-100.0); Monocytes # (auto) 0.3 10 ^3/uL (0-1.3); Neutrophils # (auto) 5.9 10 ^3/uL (1.6-8.6); Red Blood Cells 3.85 10^6/uL (4.5-5.90); White Blood Cell 6.8 10^3/uL (4.4-10.8)
[2024-09-22 07:43] LABS: Basophils % (auto) 0.1 % (0.0-2.0); Mean Corpuscular Hgb Conc. 32.4 g/dL (32.0-36.0); Monocytes % (auto) 4.5 % (0.0-12.0); Neutrophils % (auto) 86.4 % (37.0-80.0); Platelet Count (auto) 350 10^3/uL (140-450); Red Cell Distribution Width 15.6 % (11.8-14.3)
[2024-09-22] MEDS: METOPROLOL SUCCINATE XL 50 MG TAB PO SCH (09:14)
[2024-09-22 11:59] LABS: Anion Gap 7 (5-15)
[2024-09-22 12:09] LABS: BUN/Creatinine Ratio 16.3 (10.0-20.0)
[2024-09-22 12:11] LABS: Alanine Aminotransferase 9 U/L (7-40); Alkaline Phosphatase 51 U/L (46-116); Aspartate Aminotransferase 19 U/L (13-40); Bilirubin, Total 0.5 mg/dL (0.2-1.0); Blood Urea Nitrogen 13 mg/dL (9-23); Calcium 9.2 mg/dL (8.7-10.4); Carbon Dioxide 24 mmol/L (20-31); Chloride 106 mmol/L (98-107); Glucose 197 mg/dL (74-106); Magnesium 2.1 mg/dL (1.6-2.6); Potassium 4.6 mmol/L (3.5-5.1); Sodium 137 mmol/L (136-145); Total Protein 6.6 g/dL (5.7-8.2)
--- NOTE | 2024-09-22 13:33 | DVHPN2 ---
Progress Note Date Seen: Sep 22, 2024 Medical Necessity Reason Pt with a Central, PICC or Fol: No Subjective Patient reports: No new complaints Review of Systems: HEENT:Normal, CVS:Normal, RESPIRATORY:Normal, GI:Normal, :Normal, MSK:Normal, NEURO:Normal Objective vital signs Vital Sign Date Time Temp Pulse Resp B/P (MAP) Pulse Ox O2 Delivery O2 Flow Rate FiO2 09/22/24 09:43 74 18 146/77 09/22/24 09:00 98.2 94 98.2 09/22/24 08:00 Room Air* 0 21 Total Intake and Output 09/21/24 09/21/24 09/22/24 15:00 23:00 07:00 Intake Total 240 ml Balance 240 ml medications Current Medications Medications Dose Ordered Sig/Dina Route Start Time Stop Time Status Last Admin Dose Admin Docusate Sodium 100 mg BIDPRN PRN PO 09/21/24 02:00 Acetaminophen 650 mg Q6HP PRN PO 09/21/24 02:00 Morphine Sulfate 2 mg Q4HPRN PRN IV 09/21/24 02:00 09/22/24 09:43 2 MG Nitroglycerin 0.4 mg Q5MINP PRN SL 09/21/24 02:00 Morphine Sulfate 2 mg Q30M PRN IV 09/21/24 02:00 Enoxaparin Sodium 100 mg Q12HR SC 09/21/24 10:00 09/22/24 09:15 100 MG Pantoprazole Sodium 40 mg DAILY IV 09/21/24 10:00 09/22/24 09:16 40 MG Losartan Potassium 25 mg DAILY PO 09/21/24 10:00 09/22/24 09:14 25 MG Diagnostic Test (Pha) 1 strip ACHS 09/21/24 07:00 09/22/24 11:41 1 STRIP Insulin Human Regular ACHS SC 09/21/24 07:00 09/22/24 11:41 3 UNITS Dextrose 50 ml UD PRN IV 09/21/24 04:15 Aspirin 81 mg DAILY PO 09/21/24 10:00 09/22/24 09:14 81 MG Metoprolol Succinate 25 mg DAILY PO 09/22/24 10:00 09/22/24 09:14 25 MG Examination: GENERAL:Normal, HEENT:Normal, NECK:Normal, LUNGS:Normal, CVS:Normal, ABDOMEN:Normal, MSK:Normal, SKIN:Normal, NEURO:Normal, :Normal laboratory and microbiology Laboratory Tests 09/22/24 11:15 09/22/24 06:36 Test 09/22/24 11:15 Range/Units Serum Glucose 197 H 74-106 mg/dL Problem List/Assessment/Plan Problem List/Assessment/Plan #1 s/p aicd discharge ?torsades #2 cad s/p stent #3 hypokalemia: replace #4 h/o colon cancer s/p chemo #5 obesity #6 htn #7 h/o right ventricular dysplasia/ aicd placement #8 hyperlipidemia #9 a fib with secondary hyper coagulable state: pradaxa advance care planning- wishes to be full code- time spent 19 mins Plan discussed with: Patient My Orders My Orders Orders - SUPA LEZAMA MD Procedure Category Date Status Time Regular Diet DIET 09/21/24 Transmitted Dinner Suspend Dnr FRANCINE 09/22/24 Verified 13:28 Dabigatran Capsule PHA 09/22/24 Verified (Pradaxa Capsule) 22:00 Basic Metabolic Panel LAB 09/23/24 Verified 06:00 Magnesium LAB 09/23/24 Verified 05:00 Date of Service: Sep 22, 2024 Billing Provider: SUPA LEZAMA MD Common Visit Codes: [id number] INP/OBS CARE(HIGH) Secondary Visit Codes: [id number] CARE PLAN 30 MINUTES SUPA LEZAMA MD Sep 22, 2024 13:33
--- NOTE | 2024-09-22 14:51 | DVHPN2 ---
Consult Progress Note Subjective Other Systems: Patient AV paced on nutrition services manager. Patient denies any cardiac symptoms at time of assessment Objective vital signs Vital Sign Date Time Temp Pulse Resp B/P (MAP) Pulse Ox O2 Delivery O2 Flow Rate FiO2 09/22/24 14:05 61 19 134/65 09/22/24 09:00 98.2 94 98.2 09/22/24 08:00 Room Air* 0 21 Total Intake and Output 09/21/24 09/21/24 09/22/24 15:00 23:00 07:00 Intake Total 240 ml Balance 240 ml medications Current Medications Medications Dose Ordered Sig/Dina Route Start Time Stop Time Status Last Admin Dose Admin Docusate Sodium 100 mg BIDPRN PRN PO 09/21/24 02:00 Acetaminophen 650 mg Q6HP PRN PO 09/21/24 02:00 Morphine Sulfate 2 mg Q4HPRN PRN IV 09/21/24 02:00 09/22/24 14:05 2 MG Nitroglycerin 0.4 mg Q5MINP PRN SL 09/21/24 02:00 Morphine Sulfate 2 mg Q30M PRN IV 09/21/24 02:00 Pantoprazole Sodium 40 mg DAILY IV 09/21/24 10:00 09/22/24 09:16 40 MG Losartan Potassium 25 mg DAILY PO 09/21/24 10:00 09/22/24 09:14 25 MG Diagnostic Test (Pha) 1 strip ACHS 09/21/24 07:00 09/22/24 11:41 1 STRIP Insulin Human Regular ACHS SC 09/21/24 07:00 09/22/24 11:41 3 UNITS Dextrose 50 ml UD PRN IV 09/21/24 04:15 Aspirin 81 mg DAILY PO 09/21/24 10:00 09/22/24 09:14 81 MG Metoprolol Succinate 25 mg DAILY PO 09/22/24 10:00 09/22/24 09:14 25 MG Dabigatran 150 mg BID PO 09/22/24 22:00 Examination: GENERAL:Normal, LUNGS:Normal, CVS:Normal, NEURO:Normal laboratory and microbiology Laboratory Tests 09/22/24 11:15 09/22/24 06:36 Test 09/22/24 11:15 Range/Units Serum Glucose 197 H 74-106 mg/dL Problem List/Assessment/Plan Problem List/Assessment/Plan Dual-chamber AICD discharge x 1, Biotronik (01/2018) Questionable AVNRT vs Vtach Prolonged QTc >650 ms Coronary artery disease status post PCI with 1DES (off antiplatelets) 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 Villaseñor) We will continue further cardiac evaluation with a transthoracic echocardiogram. ICD interrogation performed by [employer] inside technical sales representative. Questionable sinus tachycardia with first-degree AV block versus AVNRT versus V-tach episode. Key Person MD [place] reviewed events. Recommend for EP consultation for further assessment of arrhythmia. Given advanced inoperable colorectal cancer stage III with peritoneal metastases, may not be prudent to perform any invasive cardiac procedures at this time as the risks may outweigh the benefits. This was discussed with the patient and at bedside who agreed with plan. Given the patient's very poor prognosis, he may be a candidate for hospice care. In the meantime, avoid Class Ia and III antiarrhythmics, continue therapeutic Lovenox, and single-antiplatelet therapy ([id number] Score 5 points, HAS-BLED Score 3 points). Continue beta-rosangela and up-titrate as tolerated. Replete electrolytes as necessary, K>4 and Mg >2. Further orders per clinical course. Thank you for allowing us to participate in this patient's care. Please call if you have any questions or concerns. This medical document was created using an electronic medical record system with voice recognition software and computerized dictation system. Although this document has been carefully reviewed, there might still be some phonetic and typographical errors. Occasional wrong-word or ``sound-alike substitutions may have occurred due to the inherent limitations of voice recognition software. These areas are purely typographical due to imperfections of the software programs and do not reflect any compromise in the patient's medical care. Please read the chart carefully and recognize, using context, where these substitutions have occurred. Plan discussed with: Patient Date of Service: Sep 22, 2024 Billing Provider: DEO GUTIERREZ Common Visit Codes: [id number] INP/OBS CARE(HIGH) DEO GUTIERREZ Sep 22, 2024 14:51
[2024-09-22] MEDS: DABIGATRAN 75 MG CAP PO SCH (22:00)
[2024-09-23] VITALS (8 sets, daily range): BP systolic 107–130; BP diastolic 49–68; PULSE 66–71; RESP 16–20; TEMP 97.5–98.6; O2SAT 95–98
[2024-09-23] MEDS: DABIGATRAN 75 MG CAP PO ONE (00:35)
[2024-09-23 08:03] LABS: Anion Gap 7 (5-15); Calcium 9.5 mg/dL (8.7-10.4); Carbon Dioxide 24 mmol/L (20-31); Chloride 106 mmol/L (98-107); Potassium 3.9 mmol/L (3.5-5.1); Sodium 137 mmol/L (136-145)
[2024-09-23 08:09] LABS: BUN/Creatinine Ratio 15.8 (10.0-20.0); Blood Urea Nitrogen 12 mg/dL (9-23); Magnesium 2.2 mg/dL (1.6-2.6)
[2024-09-23 08:10] LABS: Glucose 112 mg/dL (74-106)
--- NOTE | 2024-09-23 11:11 | DVHSR ---
APPROVED REPORT EXAM: Two-dimensional and M-mode echocardiogram with Doppler and color Doppler. Blood Pressure: 140/61 mmHg INDICATION ICD discharge Surgery/Intervention Pacemaker: RISK FACTORS Obesity: Height: 5'10", Weight: 225 DIMENSIONS LVDd5.2 (3.8-5.7cm)LA (2D)4.8 (1.9-4.0cm)Aortic Root3.8 (2.0-3.7cm) LVDs3.7 (2.5-4.0cm)LA (MM) (1.9-4.0cm)Aortic Cusp Exc1.5 (1.5-2.0cm) EF (%) 55.0 (55-70%)Rt. Atrium4.8 (1.9-4.0cm)Asc. Aorta cm IVSd1.2 (0.7-1.1cm)RV (D) (1.8-2.4cm) PWd1.5 (0.7-1.1cm) Mitral Valve MitralMitral Stenosis E wave0.96m/sMV Mean GR.mmHg A wave0.52m/sMV Peak GR.mmHg E/A ratio1.82D MVAcm2 DECEL [id number] 1/2 [place] Aortic Valve Aortic ValveAortic Stenosis V11.17m/Sam Mean GR.6mmHg V21.69m/Sam Peak GR.11mmHg LVOT Diameter2.2 (1.8-2.4cm)Doppler AVA2.63cm2 Pulmonic Valve V20.93m/s Tricuspid Valve TR Velocity2.99m/s [id number] Other Information Technically limited study due to body habitus. Conclusion Sinus rhythm. Concentric LVH with biatrial enlargement. Valves are normal. Left ventricular systolic performance is preserved at 60% with normal RV function. There is moderate tricuspid regurgitation with a right ventricular systolic pressure of45 mmHg consis tent with [id number] pulmonary hypertension. Mild mitral insufficiency. Trace aortic insuffic iency. No intracardiac masses thrombi or vegetations discernible.
[2024-09-23] MEDS ORDERED: DOCUSATE SOD 100 MG CAP PO PRN (14:15)
[2024-09-23] MEDS: POLYETHYLENE GLYCOL 17 GM PWDR PO ONE (14:30)
[2024-09-23] MEDS: LACTULOSE 20Gm/30ML SOLN PO ONE (14:30)
--- NOTE | 2024-09-23 15:28 | DVHDS ---
DATE OF DISCHARGE: 09/23/2024 TRANSFER SUMMARY HISTORY OF PRESENT ILLNESS: The patient is a 79-year-old gentleman who was admitted after his AICD discharged. The patient felt lightheaded. The patient has history of metastatic colon cancer and has had recent chemotherapy. He also has history of diabetes, hypertension, status post AICD placement, coronary artery disease, paroxysmal atrial fibrillation. HOSPITAL COURSE: The patient was seen in Cardiology consult by Dr. Villaseñor. Echocardiogram done showed ejection fraction of 60%. The patient's hemoglobin was 9.9. The patient's potassium was 3.2. The patient's chest x-ray was unremarkable. The patient had AICD interrogation, but it is unclear as to what triggered the arrhythmia. The patient will now be transferred to [place] for further management. FINAL DIAGNOSES: Therefore, * Dual chamber AICD, status post discharge. * Questionable AVNRT versus V-tach. * Coronary artery disease with previous stent. * Hypokalemia. * History of colon cancer, status post chemo. * Obesity. * Hypertension. * History of right ventricular dysplasia. * Atrial fibrillation. * Hyperlipidemia. Time spent in discharge plan and review of plan with the patient and family at bedside and nursing was 38 minutes. MD KARIE Guadarrama/JULIA TID: [id number] RECEIPT: [id number]
[2024-09-24] VITALS (8 sets, daily range): BP systolic 112–142; BP diastolic 58–74; PULSE 66–85; RESP 17–18; TEMP 97.9–98.4; O2SAT 95–98
--- NOTE | 2024-09-24 12:38 | DVHPN2 ---
Subjective The patient is seen and examined at bedside. No complaint today. The patient is supposed to transfer to [place] however still here in the hospital Reviewed: Care Plan, H&P, Labs, Medications, Previous Orders, Radiology Changes from previous H/P or p: No Changes Objective Vitals Vital Signs Date Time Temp Pulse Resp B/P (MAP) Pulse Ox O2 Delivery O2 Flow Rate FiO2 09/24/24 11:28 85 17 114/68 09/24/24 08:40 98.1 98 98.1 09/23/24 20:00 Room Air* 0 21 Intake/Output Intake and Output 09/24/24 07:00 Intake Total 2210 ml Balance 2210 ml Intake Oral 2210 ml # Voids 9 # Bowel Movements 5 General Appearance: Alert, Oriented X3, Cooperative, No acute distress HEENT: Atraumatic, PERRLA, EOMI, Mucous membr. moist/pink Neck: Supple Lungs: Clear to auscultation, Normal air movement Cardiovascular: Regular rate, Normal S1, Normal S2, No murmurs, Gallops, Rubs Abdomen: Normal bowel sounds, Soft, No tenderness Neuro: Cranial nerves 3-12 NL Psych/Mental Status: Mental status NL Medications Current Medications Medications Dose Ordered Sig/Dina Route Start Time Stop Time Status Last Admin Dose Admin Docusate Sodium 100 mg BIDPRN PRN PO 09/21/24 02:00 Acetaminophen 650 mg Q6HP PRN PO 09/21/24 02:00 Morphine Sulfate 2 mg Q4HPRN PRN IV 09/21/24 02:00 09/24/24 11:28 2 MG Nitroglycerin 0.4 mg Q5MINP PRN SL 09/21/24 02:00 Morphine Sulfate 2 mg Q30M PRN IV 09/21/24 02:00 Pantoprazole Sodium 40 mg DAILY IV 09/21/24 10:00 09/24/24 11:24 40 MG Losartan Potassium 25 mg DAILY PO 09/21/24 10:00 09/24/24 11:26 25 MG Diagnostic Test (Pha) 1 strip ACHS 09/21/24 07:00 09/24/24 11:42 1 STRIP Insulin Human Regular ACHS SC 09/21/24 07:00 09/24/24 12:09 2 UNITS Dextrose 50 ml UD PRN IV 09/21/24 04:15 Aspirin 81 mg DAILY PO 09/21/24 10:00 09/24/24 11:27 81 MG Metoprolol Succinate 25 mg DAILY PO 09/22/24 10:00 09/24/24 11:26 25 MG Dabigatran 150 mg BID PO 09/22/24 22:00 09/24/24 11:41 150 MG Docusate Sodium 100 mg BIDPRN PRN PO 09/23/24 14:15 Laboratory Results Laboratory Tests 09/22/24 06:36 09/23/24 06:46 Urinalysis Test 09/21/24 01:47 Urine Color Yellow (Yellow) Urine Clarity Clear (Clear) Urine pH 6.0 (5.0-9.0) Urine Specific [place] 1.027 (1.001-1.035) Urine Protein Trace (Negative) H Urine Ketones 1+ (Negative) H Urine Blood Negative /uL (Negative) Urine Nitrite Negative (Negative) Urine Bilirubin Negative (Negative) Urine Urobilinogen 2 mg/dL (Negative) H Urine Leukocyte Esterase Negative /uL (Negative) Urine RBC <1 /hpf (0 - 3) Urine Microscopic WBC 1 /HPF (0-3) Urine Squamous Epithelial Cells Few /hpf (<5) Urine Bacteria None seen /hpf (None Seen) Urine Mucus Few (None Seen) Urine Glucose Normal mg/dL (Normal) Labs and/or images reviewed: Labs reviewed by me Assessment/Plan Assessment/Plan #1 s/p aicd discharge ?torsades #2 cad s/p stent #3 hypokalemia: replace #4 h/o colon cancer s/p chemo #5 obesity #6 htn #7 h/o right ventricular dysplasia/ aicd placement #8 hyperlipidemia #9 a fib with secondary hyper coagulable state: pradaxa Continuing current management. I spoke with [facility]. I explained to [facility] that the patient need clinical trial specialist to see him and the evaluate of the AICD discharge due to questionable torsade. So finally [facility] accepted the patient and we will be transfer him tonight to [place]. Plan discussed with: Patient My Orders Orders - DHEERAJ RITCHIE MD Procedure Category Date Status Time * [employer] CONS 09/24/24 Verified Consult Date of Service: September 24, 2024 Billing Provider: DHEERAJ RITCHIE MD Common Visit Codes: [id number] INP/OBS CARE(HIGH) DHEERAJ RITCHIE MD September 24, 2024 12:38
--- NOTE | 2024-09-24 15:10 | ECG ---
[facility] Test Date: 2024-09-21 Test Time: 02:23:16 Pat Name: SAMANTHA MCCOY Department: ED Room: 0292T B Gender: M Services Advisor: TEREZA : 1945 Requested By: DEO GUTIERREZ Order Number: [id number] Reading MD: Cristhian Villaseñor Measurements Intervals [place] Rate: 71 P: 0 LA: 318 QRS: -38 QRSD: 186 T: 219 QT: 615 QTc: 669 Interpretive Statements Atrial-paced complexes Ventricular premature complex Prolonged LA interval Right bundle branch block Repol abnrm suggests ischemia, lateral leads Electronically Signed On 09-24-2024 15:33:12 PDT by Cristhian Villaseñor Please click the below link to view image of tracing.
--- NOTE | 2024-09-24 15:11 | ECG ---
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
[2024-09-24] MEDS: HYDROcodone-ACET 10/325MG TAB PO PRN (16:48)
[2024-09-24] MEDS: HYDROmorphone HCL 2 MG/ML VL/or syr IV PRN (21:39)
--- NOTE | 2024-09-28 10:45 | ECG ---
[facility] Test Date: 2024-09-20 Test Time: 23:33:08 Pat Name: SAMANTHA MCCOY Department: ED Room: 0292T B Gender: M Fuel Management Handler: TEREZA : 1945 Requested By: KODY HERNANDEZ Order Number: [id number] Reading MD: Cristhian Villaseñor Measurements Intervals [place] Rate: 76 P: 37 VA: 244 QRS: -38 QRSD: 186 T: 182 QT: 596 QTc: 671 Interpretive Statements Sinus rhythm Prolonged VA interval Consider right atrial enlargement Right bundle branch block Repol abnrm suggests ischemia, lateral leads Electronically Signed On 09-30-2024 20:11:42 PDT by Cristhian Villaseñor Please click the below link to view image of tracing.
== END 2024-09-24 22:48 | disposition short-term general hospital (02) | DRG 309 ==
LOC: EDBD 23:39 → ER 23:39 → OVERFLOW 09-21 01:47 → TELE-WESTW 09-21 22:06
PROVIDERS: ADMIT Internal Medicine; ATTEND Internal Medicine
DX: I47.19 Other supraventricular tachycardia (principal); C78.6 Secondary malignant neoplasm of retroperitoneum and peritoneum; I42.8 Other cardiomyopathies; E87.6 Hypokalemia; E66.9 Obesity, unspecified; Z66 Do not resuscitate; I48.0 Paroxysmal atrial fibrillation; E78.5 Hyperlipidemia, unspecified; I47.20 Ventricular tachycardia, unspecified; I10 Essential (primary) hypertension; I25.10 Atherosclerotic heart disease of native coronary artery without angina pectoris; E11.9 Type 2 diabetes mellitus without complications; Z95.810 Presence of automatic (implantable) cardiac defibrillator; Z85.048 Personal history of other malignant neoplasm of rectum, rectosigmoid junction, and anus; Z88.8 Allergy status to other drugs, medicaments and biological substances; Z79.82 Long term (current) use of aspirin; Z79.899 Other long term (current) drug therapy; Z95.5 Presence of coronary angioplasty implant and graft; Z92.21 Personal history of antineoplastic chemotherapy; Z68.35 Body mass index [BMI] 35.0-35.9, adult; Z79.84 Long term (current) use of oral hypoglycemic drugs; I47.21 Torsades de pointes
CPT/HCPCS: 36415; 71045; 80048; 80053; 80307; 81001; 82306; 82607; 82962; 83036; 83605; 83735; 83880; 84100; 84132; 84443; 84484; 85025; 85610; 85730; 93005; 93306; 99291; G0378; J1100; J1815; J2405; J2470